=== PATIENT | female | born 1990 | race Caucasian/White ===

== ENCOUNTER 2021-09-27 10:47 | Outpatient (CLI) | payer MEDICAID, SELFPAY | END 2021-09-27 23:59 | disposition short-term general hospital (02) | LOC: LABSPEC 10:47 | PROVIDERS: Visit Provider Physician Assistant | DX: U07.1 COVID-19 (principal) | CPT/HCPCS: 87635; U0003; U0005 ==

== ENCOUNTER 2021-09-30 09:47 | Outpatient (CLI) | payer MEDICAID, SELFPAY ==
[2021-09-30 10:00] VITALS: BP 124/84; PULSE 77; RESP 16; TEMP 36.7; O2SAT 97; BMI 66.4
[2021-09-30] MEDS: 0.9% Saline Lock 10 ML Syringe IV (10:07)
[2021-09-30 10:29] VITALS: BP 118/73; PULSE 55; RESP 16; TEMP 36.4; O2SAT 96
[2021-09-30 11:22] VITALS: BP 116/66; PULSE 98; RESP 16; TEMP 36.3; O2SAT 98
== END 2021-09-30 23:59 | disposition home or self-care (01) ==
LOC: MS3OUT 09:50 → MS3 09:57
PROVIDERS: PCP Nurse Practitioner Adult Health; Referring Provider Nurse Practitioner Adult Health; Visit Provider Nurse Practitioner Adult Health
DX: U07.1 COVID-19 (principal)
CPT/HCPCS: J7050; M0243; A4216; Q0244

== ENCOUNTER 2021-10-23 20:31 | Outpatient (CLI) | payer MEDICAID, SELFPAY | END 2021-10-23 23:59 | disposition short-term general hospital (02) | PROVIDERS: PCP Family Medicine; Referring Provider Internal Medicine Sleep Medicine; Visit Provider Internal Medicine Sleep Medicine | DX: O99.891 Other specified diseases and conditions complicating pregnancy (principal); E66.01 Morbid (severe) obesity due to excess calories; O99.353 Diseases of the nervous system complicating pregnancy, third trimester; G47.10 Hypersomnia, unspecified; R06.83 Snoring; O99.213 Obesity complicating pregnancy, third trimester; R06.81 Apnea, not elsewhere classified | CPT/HCPCS: 95811 ==

== ENCOUNTER 2021-11-01 09:10 | Inpatient (IN) | payer MEDICAID, SELFPAY ==
[2021-11-01] VITALS (13 sets, daily range): BP systolic 114–146; BP diastolic 61–88; PULSE 83–103; RESP 16–20; TEMP 36.1–36.7; O2SAT 95–100; BMI 66.7
--- NOTE | 2021-11-01 | FALS_PTH ---
PATIENT: FIDEL STANTON LOC: WP U#:[id number] AGE/SX: 31/F ROOM: WP004 RE11/01/[address]: Dr. Camelia Bauman MD : 1990 BED: 1 DIS: 11/02/2021 SPEC #: [id number] RECD: 11/01/21 14:33 STATUS: CONSUELO REMarcy #: [id number] JJ: 11/01/21 00:[address]: Camelia Bauman DEPT: SURGICAL PATHOLOGY RECD BY: Héctor Chaves ENTERED: 11/02/21 11:03 SP TYPE: FALL TUBES OTHR DR: Joshua Grove MD Tissues: Fallopian tube Procedures: Surgery Specimen Level II HEADER OPERATION: Tubal ligation PRE-OP DIAGNOSIS: Sterilization TISSUE SUBMITTED: Fallopian tubes MICROSCOPIC DIAGNOSIS Bilateral fallopian tubes, salpingectomy: Bilateral fallopian tubes, no pathologic diagnosis. CHANELLE:chelle 11/03/2021 MICROSCOPIC DESCRIPTION Slides are reviewed. GROSS DESCRIPTION Received in fixative is one container labeled with the patient's name and designated bilateral fallopian tubes. The specimen consists of bilateral fallopian tubes including fimbrial ends. One of the fallopian tubes show a suture. The fallopian tube with suture measures 7 cm in length and 0.5 cm in diameter. The other fallopian tube measures 7 cm in length and 0.5 cm in diameter. The fallopian tubes are not identified as right or left. Sections reveal unremarkable cut surfaces. Pastrycook'S Assistant sections are submitted in two cassettes as follows: 1 ? fallopian tube with suture, 2 ? second fallopian tube without suture. / CHANELLE:chelle 11/02/2021 TC:4 CPT: 93241 x2
[2021-11-01] MEDS: Lactated Ringers 1,000 ML 999 ML IV (09:50)
[2021-11-01 10:02] LABS: Absolute Lymphocyte Count 1.45 X10^3/uL (0.83-4.51); Absolute Neutrophil Count 7.9 X10^3/uL (2.0-7.7); Basophil# 0.02 X10^3/uL; Basophil% 0.2 % (0-1); Eosinophil# 0.07 X10^3/uL; Eosinophils% 0.7 % (0-5); Hematocrit 41.2 % (37-47); Hemoglobin 13.7 g/dL (12.0-15.0); Lymphocyte # 1.45 X10^3/ul (0.83-4.51); Lymphocyte % 14.4 % (19-41); Mean Corp Hgb Conc 33.3 g/dL (32-36); Mean Corpuscular Hgb 27.9 pg (27.0-32.0); Mean Corpuscular Volume 83.9 fL (81-99); Mean Platelet Vol. 9.4 fl (6.2-12.0); Monocyte# 0.53 X10^3/uL; Monocyte% 5.3 % (0-10); NRBC Flagged by Analyzer 0 % (0-5); Neutrophil # 7.93 X10^3/uL (2.7-7.7); Platelet Count 268 K/mm3 (150-450); RBC Distribution Width SD 48.3 fl (35.1-43.9); Red Blood Count 4.91 M/mm3 (4.2-5.4)
[2021-11-01] MEDS: Acetaminophen 500 MG Tablet 1000 MG PO ×3 (10:34→23:22)
[2021-11-01] MEDS: Lactated Ringers 1,000 ML 150 ML IV (10:50)
[2021-11-01 11:05] LABS: Bedside Glucose 70 mg/dL (70-110)
[2021-11-01] MEDS: Sodium Citrate/Citric Acid 30 ML UDC PO (11:55)
--- NOTE | 2021-11-01 13:11 | PCM.HP.OB ---
HPI - General General Date of Admission: 11/01/21 Chief Complaint: 37 weeks HPI Narrative FIDEL STANTON, is a 31-year-old 3 para 1-0-1-1 who presents with EDC of 11/22/1910/12[birth year]2021 by first trimester ultrasound presents for repeat section. She denies any vaginal bleeding or leaking of fluid. is uncomplicated to date by gestational diabetes, she was not on insulin but her blood sugars have trended up. She not start regularly checking her sugars until late in the third trimester that is why she is not started on insulin. In addition she has severe sleep apnea and had not gotten evaluated or gotten the CPAP prior to and then had some delays getting it during the . With her morbid obesity, sleep apnea and sats dropping into the 60s at times when she sleeps, and gestational diabetes with worsening blood sugars decision was made to proceed with section at 37 weeks. Maternal Data Information Final BIJU: 11/21/21 Final BIJU Source: US <20 weeks Gestational age: 37 PFSH [facility] Medical History (Updated 11/01/21 @ 13:[address] Camelia Bauman MD) ADHD Anxiety Arthritis Asthma COVID Depression Family history of hearing loss at age younger than 7 years Gestational diabetes History of asthma Hx of sleep apnea Migraines Obese Status post placement of bone anchored hearing aid (BAHA) Home Medications [id number] [] 1 tab PO DAILY 10/31/21 [History Last Taken 10/31/21 19:00] acetaminophen 500 mg PO Q6H PRN 10/31/21 [History Last Taken 10/31/21 19:00] albuterol sulfate 2 puff INHALATION Q6H PRN 10/31/21 [History Last Taken Unknown] ascorbic acid (vitamin C) [Vitamin C] 500 mg PO DAILY 10/31/21 [History Last Taken 10/31/21 19:00] cetirizine [Zyrtec] 10 mg PO DAILY 10/31/21 [History Last Taken 10/31/21 19:00] cholecalciferol (vitamin D3) [Vitamin D3] 25 mcg PO DAILY 10/31/21 [History Last Taken 10/31/21 19:00] aspirin [Baby Aspirin] 81 mg PO DAILY 11/01/21 [History Last Taken 10/31/21 19:00] Allergy/AdvReac Type Severity Reaction Status Date / Time codeine AdvReac HYPERACTIVE Verified 11/01/21 09:39 metoclopramide HCl AdvReac HYPERACTIVE Verified 11/01/21 09:39 [From Reglan] Surgical History (Updated 11/01/21 @ 13:[address] Camelia Bauman MD) History of myringotomy Hx laparoscopic cholecystectomy Hx of cholecystectomy Previous section Social History Smoking Status: Never smoker History Elective abortions Hx Para 1 Spontaneous abortions Hx # Term Pregnancies Ectopic pregnancies Hx # Pregnancies Multiple births # of living children ROS Constitutional Constitutional: Denies fatigue, fever(s) or malaise Eyes Eyes: Denies change in vision ENT HEENT: Denies dizziness or headache(s) Cardiovascular Cardiovascular: Denies chest pain, dyspnea or lightheadedness Respiratory/Chest Respiratory/Chest: Denies cough or dyspnea Gastrointestinal Gastrointestinal: Denies change in bowel habits Genitourinary Genitourinary: Denies burning urination or genital lesions Integumentary Integumentary: Denies rash Neurologic Neurologic: Denies confusion, dizziness, headache(s), numbness or weakness Vital Signs Vital Signs Vital Signs: 11/01/21 11:00 Temperature 97.2 F L Temperature Source Temporal Pulse Rate 98 Respiratory Rate 16 Blood Pressure 135/73 H Blood Pressure Mean 93 Blood Pressure Source Monitor Blood Pressure Position Semi-Fowlers Blood Pressure Location Right Arm Pulse Ox 98 Oxygen Delivery Method Room Air Weight Weight: 140 kg Body Mass Index (BMI) 66.7 Physical Exam Const alert and no apparent distress General Appearance: cooperative HEENT normocephalic Resp normal respiratory effort Cardio regular rate GI soft to palpation GI Narrative: gravid, nontender, appropriate for gestational age Extremity no calf tenderness General Extremity: edema Skin no wounds Rashes: No rashes noted Psych activity/motor behavior normal Labs Labs Labs: Blood Type AB POSITIVE Antibody Screen NEGATIVE Hct 41.2 % (37-47) Hgb 13.7 g/dL (12.0-15.0) Obstetrics US Rhogam given: No Assessment & Plan (1) 37 weeks gestation of : (2) Previous delivery affecting , antepartum: PLAN: Risk benefits alternatives of previous section with bilateral salpingectomy were discussed with patient, questions were answered to her satisfaction she desires to proceed. She understands that sterilization is permanent irreversible. (3) Maternal obesity syndrome in third trimester: (4) Body mass index (BMI) of 60.0 to 69.9 in adult: (5) Gestational diabetes, diet controlled: (6) COVID-19 affecting in third trimester: (7) Sterilization:
--- NOTE | 2021-11-01 13:20 | OP.PCM_ITS ---
Assessment & Plan (1) Gestational diabetes, diet controlled: (2) Body mass index (BMI) of 60.0 to 69.9 in adult: (3) Maternal obesity syndrome in third trimester: (4) Previous delivery affecting , antepartum: (5) 37 weeks gestation of : Maternal Data Information Final BIJU: 11/21/21 Gestational age: 37 1/7 Details Operative Information Date of Procedure: 11/01/21 Pre-Operative Diagnosis: 37 weeks, previous c/s, GDMa1, sleep apnea Post-Operative Diagnosis: same Indications for : Repeat Elective Classification: Scheduled Procedure Type: bilateral salpingectomy sanitation engineer #1: Daniel Carr Type of Anesthesia: Spinal Anesthesiologist: Sage Zimmerman Antibiotic Given: Ancef 3 grams IV x1 Drain: Frost to straight drain Estimated Blood Loss: 800 Fluids Replaced: 1200 Procedure Start Time: 12:34 Procedure Stop Time: 13:18 Time of Delivery: 12:38 Findings Description of Procedure: The patient was taken to the operating room. She was prepped and draped in the dorsal supine position with a leftward tilt. Strauss straps were used to retract the pannus. A Pfannenstiel skin incision was made approximately 2 cm above the symphysis pubis and carried through to underlying layer fascia with the scalpel. The fascia was incised incised in the midline and extended laterally with the De La Garza scissors. The fascia was dissected off the rectus muscles with blunt and sharp dissection. The rectus muscles were in the midline and the peritoneum was entered bluntly. The peritoneal incision was stretched and the Francis O retractor was placed in the usual sterile fashion. Care was taken to ensure that no abdominal contents were trapped underneath it. The uterine incision was made in a low transverse fashion with the scalpel and extended superiorly and inferiorly with blunt dissection. The amniotic membranes were ruptured bluntly and clear amniotic fluid returned. The 's head was brought to the incision in the flexed position and delivered without difficulty. The remainder of the infant was delivered with gentle traction and the loose nuchal cord x2 was easily reduced and fundal pressure in the standard fashion. The mouth and nares were bulb suctioned. The cord was clamped and cut as the was stimulated. Cord clamping was delayed. The was handed off to the waiting nursing staff. The placenta was delivered with fundal massage and gentle traction in the standard fashion. The uterus was left in situ. The cervix was dilated with a ring forcep. The uterine incision was closed with #1 Vicryl in a running locked fashion. A single [id number] suture was needed in a sinus near the midline and hemostasis was noted. The incision was examined and was found to be hemostatic. The left tube was identified and followed out to the fimbriated end. Antimesenteric portion was then clamped, sealed and transected with the LigaSure to void device. The insertion into the cornea was then clamped sealed and transected with the LigaSure device. The same procedure was performed on the contralateral side and both tubes were sent sent to pathology. The uterine incision was reexamined and found to be hemostatic. The rectus muscles were examined and any bleeding was Bovie cauterized. The parietal peritoneum and rectus muscles were closed en bloc with an 0 Vicryl running suture. The surgical teams outer gloves were then changed. The rectus fascia was examined and any bleeding was Bovie cauterized and the rectus fascia was closed with loop PDS suture in a running standard fashion. Issa was placed over every layer during closure. The subcutaneous tissue was examining and any bleeding was Bovie cauterized. The subcutaneous tissue was reapproximated with 3-0 Vicryl suture in 2 layers. The skin was closed in a subcuticular fashion by the TANNER ROTARY DRUM CONTINUOUS PROCESS with me present in the labor and delivery suite. I performed the remainder of the procedure with assistance. All sponge, lap, and needle counts were correct. The patient was taken to her room for recovery in a stable condition. Of note the baby was transported [facility] for yousuf luation. Baby was requiring supplemental oxygen and was noted to have a cleft palate. Presentation: Positive for Vertex Amniotic Membrane Rupture Type: Artificial Amniotic Fluid Description: Clear Placental Delivery Description: Expressed Placenta Disposition: Sent with transport team Specimen(s) Sent to Pathology: Bilateral fallopian tube Cord Vessel Description: 3 Vessels Cord Entanglement: Around neck x 2, loose Nuchal Cord Compression: Without compression Cord Gases: ABG and VBG A Gender: Male (Issac, of no Apgars were not available at time of note.) Delayed Cord Clamping: Yes Complications Complications: No complications.
[2021-11-01] MEDS: Oxytocin 30 units/NS 500 ml 30 UNITS/500 ML IV.SOLN 167 UNITS IV (13:30)
[2021-11-01] MEDS: Ketorolac 30 MG/ML Syringe IV ×2 (14:50→20:31)
[2021-11-01] MEDS: 0.9% Saline Lock 10 ML Syringe IV ×2 (14:50→20:32)
[2021-11-01 15:05] LABS: Bedside Glucose 91 mg/dL (70-110)
--- NOTE | 2021-11-01 15:11 | CASEMGMT ---
Social Work Labor and Delivery Consulted by freight adjuster for support to the father of baby who remained present for the baby, who was being cared for by medical team. Mother of baby back in room and on recovery. Met with father of baby, introduced to self and role. Offered emotional support. FOB reports to have a sister with 20 plus years as a NICU nurse, so has this trustworthy resource to help FOB understand what is going on. Supportive listening offered. FOB plans to go to [place] to be with baby, will have a family member drive FOB to [place] and have already arranged a second support to MOB while MOB is recovering in the hospital after delivery. -VALERIO Nguyễn, FORM STRIPPER
--- NOTE | 2021-11-01 15:13 | NURSING ---
2nd bottle of kimberly- Lot: [id number] Exp: 05/20/26
--- NOTE | 2021-11-01 19:35 | NURSING ---
Addendum entered by Florence Ellis 11/01/21 19:35: This RN has reviewed and agrees with all charting by SN Aniceto Original Note: this RN has reviewed and agrees with all charting by Hue Parker RN
[2021-11-01] MEDS: oxyCODONE 5 MG Tablet PO (19:43)
[2021-11-02 00:40] VITALS: BP 144/87; PULSE 96; RESP 16; TEMP 35.9; O2SAT 97
[2021-11-02] MEDS: Enoxaparin 40 MG/0.4 ML Syringe SC ×2 (00:46→13:39)
[2021-11-02] MEDS: 0.9% Saline Lock 10 ML Syringe IV ×2 (02:42→09:20)
[2021-11-02] MEDS: Ketorolac 30 MG/ML Syringe IV ×2 (02:42→09:18)
[2021-11-02 04:50] VITALS: BP 120/72; PULSE 86; RESP 16; TEMP 36; O2SAT 96
[2021-11-02] MEDS: Acetaminophen 500 MG Tablet 1000 MG PO ×3 (05:05→17:47)
[2021-11-02 05:48] LABS: Hematocrit 45.5 % (37-47); Hemoglobin 13.8 g/dL (12.0-15.0); Mean Corp Hgb Conc 30.3 g/dL (32-36); Mean Corpuscular Hgb 28.8 pg (27.0-32.0); Mean Platelet Vol. 9.2 fl (6.2-12.0); Platelet Count 189 K/mm3 (150-450); RBC Distribution Width SD 56.1 fl (35.1-43.9); Red Blood Count 4.79 M/mm3 (4.2-5.4); White Blood Count 9.6 K/mm3 (4.4-11.0)
[2021-11-02 06:20] LABS: Bedside Glucose 97 mg/dL (70-110)
--- NOTE | 2021-11-02 08:21 | PCM.PN.OB ---
Subjective Subjective Patient seen at bedside. Requesting discharge home due to baby being in [facility]. Denies any headache, vision changes, SOB or CP. Ambulating and voiding without difficulty. Lochia decreasing. Pumping and saving breast milk to transfer to . Objective Data Objective Data Vital Signs: Vital Signs Temp Pulse Resp BP Pulse Ox 96.8 F L 86 16 120/72 96 11/02/21 04:50 11/02/21 04:50 11/02/21 04:50 11/02/21 04:50 11/02/21 04:50 Oxygen Delivery Method Room Air Weight: 308 lb 10.354 oz Body Mass Index (BMI) 66.7 Intake & Output: Intake and Output for Last 24 Hours 10/31/21 11/01/21 11/02/21 23:59 23:59 23:59 Intake Total 1782.5 / 1782.5 Output Total 550 / 550 900 / 900 Balance 1232.5 / 1232.5 -900 / -900 Lab / Micro Data Result Diagrams: 11/02/21 05:30 Labs: Laboratory Results - last 24 hr 11/01/21 09:50: WBC 10.0, RBC 4.91, Hgb 13.7, Hct 41.2, MCV 83.9, MCH 27.9, MCHC 33.3, RDW Std Deviation 48.3 H, RDW Coeff of Edward 16.0 H, Plt Count 268, MPV 9.4, Immature Gran % (Auto) 0.400, Neut % (Auto) 79.0 H, Lymph % (Auto) 14.4 L, [place] % (Auto) 5.3, Eos % (Auto) 0.7, Baso % (Auto) 0.2, Absolute Neuts (auto) 7.9 H, Absolute Lymphs (auto) 1.45, Nucleated RBC % 0 11/01/21 09:50: Blood Type AB POSITIVE, Antibody Screen NEGATIVE 11/01/21 10:53: POC Glucose 70 11/01/21 14:55: POC Glucose 91 11/02/21 05:30: WBC 9.6, RBC 4.79, Hgb 13.8, Hct 45.5, MCV 95.0 D, MCH 28.8, MCHC 30.3 L D, RDW Std Deviation 56.1 H, RDW Coeff of Edward 16.0 H, Plt Count 189, MPV 9.2 11/02/21 06:15: POC Glucose 97 ROS Eyes Eyes: Denies blurry vision, change in vision or spots in vision ENT HEENT: Denies dizziness or headache(s) Cardiovascular Cardiovascular: Denies abdominal pain, chest pain or dyspnea Respiratory/Chest Respiratory/Chest: Denies cough, dyspnea, shortness of breath at rest or shortness of breath with exertion Gastrointestinal Gastrointestinal: Denies abdominal pain, diarrhea or vomiting Genitourinary Genitourinary: Denies change in urinary stream, difficulty urinating or dysuria Musculoskeletal Musculoskeletal: Reports none Integumentary Integumentary: Denies rash Neurologic Neurologic: Denies dizziness, headache(s), memory loss or weakness Physical Exam Narrative Mepilex silver dressing with drainage not outside of marked area. Const alert and no apparent distress General Appearance: cooperative and comfortable Exam Limitations: no limitations HEENT normocephalic Eyes General Eye: normal appearance of both eyes Neck full ROM General: normal visual inspection Chest Chest: symmetrical chest wall rise Resp normal respiratory effort and normal air movement Effort and Inspection: symmetric chest movement Auscultation: clear to auscultation bilaterally Cardio regular rate and regular rhythm GI normal to inspection, nondistended, normoactive bowel sounds Back/Spine normal ROM Extremity full ROM and no calf tenderness General Extremity: normal exam except as noted Skin no rashes or lesions noted Neuro CN's II-XII intact bilaterally Psych mental status grossly normal Assessment & Plan (1) Sterilization: (2) Body mass index (BMI) of 60.0 to 69.9 in adult: (3) Status post repeat low transverse section: PLAN: PO 1 Repeat C/S Pain control Routine care / pumping support D/C home due to being in [facility] (respiratory) Patient to follow up in office 1 week for incision check Dr. Bauman notified of discharge
[2021-11-02 09:00] VITALS: BP 120/74; PULSE 94; RESP 24; TEMP 36.1; O2SAT 96
[2021-11-02] MEDS: Senna/Docusate Sodium 1 Tablet PO (09:19)
--- NOTE | 2021-11-02 11:52 | PCM.DC.SUM ---
Providers Date of Admission: 11/01/21 Primary Care Physician: Joshua Grove MD Reason For Visit: REPEAT C SECTION - NEEDS PAT/ANES CONSULT PER OFFI Medications at Discharge Home Medications 1 tab PO DAILY 10/31/21 Zyrtec 10 mg PO DAILY 10/31/21 albuterol sulfate 2 puff INHALATION Q6H PRN 10/31/21 oxycodone 5 - 10 mg PO Q4H PRN PRN 5 Days #20 tab 11/02/21 Hospital Course Operations section Physical Exam Const alert and no apparent distress General Appearance: cooperative and comfortable Exam Limitations: no limitations HEENT normocephalic Eyes General Eye: normal appearance of both eyes Neck full ROM General: normal visual inspection Chest Chest: symmetrical chest wall rise Resp normal respiratory effort and normal air movement Effort and Inspection: symmetric chest movement Auscultation: clear to auscultation bilaterally Cardio regular rate and regular rhythm GI normal to inspection, nondistended, normoactive bowel sounds Back/Spine normal ROM Extremity full ROM and no calf tenderness General Extremity: normal exam except as noted Skin no rashes or lesions noted Neuro CN's II-XII intact bilaterally Psych mental status grossly normal Weight / BMI Weight Weight: 308 lb 10.354 oz Body Mass Index (BMI) 66.7 ABG / Lab / Microbiology Data Result Diagrams: 11/02/21 05:30 Laboratory: Laboratory Results - last 24 hr 11/01/21 14:55: POC Glucose 91 11/02/21 05:30: WBC 9.6, RBC 4.79, Hgb 13.8, Hct 45.5, MCV 95.0 D, MCH 28.8, MCHC 30.3 L D, RDW Std Deviation 56.1 H, RDW Coeff of Edward 16.0 H, Plt Count 189, MPV 9.2 11/02/21 06:15: POC Glucose 97 D/C Instructions Discharge Diet: No restrictions May resume sexual activity in: 6-8 weeks Weight Bearing Status: Weight bearing as tolerated Lifting Restrictions: 20 lbs Call your doctor if your incision/area has: Continuous Slow Oozing, Increased Pain/ Swelling, Increased Redness, Foul Smelling Discharge and Swelling at the incision site Call your doctor if you observe: Fever of 101 or Higher, Inability to urinate, Using more than 1 pad per hour, Shortness of breath, Chest pain, Calf discomfort and Uncontrolled pain Remove Dressing in: 5 days Cleanse incision/area with: Soap & Water and Keep Dressing Clean & Dry When: 1 week in office for incision check or sooner if needed 6 weeks Meaningful Use Info Meaningful Use Diagnoses (Choose all that apply): None applicable Discharge Plan Admission Admit Date/Time: 11/01/21 09:10 Primary Reason for Your Visit: Repeat C/S with BTL Attending Provider: Camelia Bauman Primary Care Provider: Joshua Grove Discharge Orders/Prescriptions Prescriptions: New oxycodone 5 mg Tablet 5 - 10 mg PO Q4H PRN PRN (Reason: Pain Score 4-10) 5 Days Qty: 20 RF: 0 Continued Zyrtec 10 mg Capsule 10 mg PO DAILY RF: 0 28-800 mg-mcg Tablet 1 tab PO DAILY RF: 0 albuterol sulfate 90 mcg/actuation Hfa Aerosol Inhaler 2 puff INHALATION Q6H PRN (Reason: ASTHMA) RF: 0 Discontinued acetaminophen 500 mg Tablet 500 mg PO Q6H PRN (Reason: Pain) RF: 0 ascorbic acid (vitamin C) [Vitamin C] 500 mg Tablet 500 mg PO DAILY RF: 0 cholecalciferol (vitamin D3) [Vitamin D3] 25 mcg (1,000 unit) Tablet,Chewable 25 mcg PO DAILY RF: 0 aspirin [Baby Aspirin] 81 mg Tablet,Chewable 81 mg PO DAILY RF: 0 Referrals / Follow Up: Joshua Grove MD [Primary Care Provider] - Disposition Disposition (needs filled in before D/C Order can be placed): Home, Self Care
[2021-11-02 13:00] VITALS: BP 131/84; PULSE 92; TEMP 36; O2SAT 95
--- NOTE | 2021-11-02 13:31 | CASEMGMT ---
Social Work Brief Assessment Labor and Delivery Unit Patient Address: [address], [place] [address] Phone number: [phone] Date of Referral/Notification: 11/01/2021 Time of Referral: 1736 Referred By: Dr. Camelia Bauman Date of Intervention: 11/02/2021 Time of Intervention: [id number] Reason for Referral: Infant transferred to [facility], infant born with undiagnosed cleft palate Informant: Medical record and mother of baby (MOB) Christa Levin History: PARISH is a 31-year-old female, 3, para 1 now 2 after delivering baby boy Issac Levin on 11/01/2021. Emma's was delivered and found to have an undiagnosed cleft palate also some respiratory distress issues which prompted transfer to [facility]. MOB is to the father of baby (FOB) Norman Levin. During conversation with MOB, MOB denies any form of abuse, control, intimidation in this relationship. MOB and FOB now have 2 children together: Juliana Levin born 10/15/2014, and baby boy Issac Levin. Record indicates the father of baby has a history of bipolar disorder, depression and anxiety. MOB a history of ADHD, anxiety and depression. MOB denies any concerns with her emotional health, and denies any history of depression or anxiety. No reports or endorsement of any type of substance use. 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 No reported issues with learning or comprehension for the MOB. MOB denies any concerns or history with children services. No reports of any legal issues. Assessment: Met with MOB in room, introducing to self and social work role. MOB reports to be doing pretty well physically, has been up and moving, and is just a little sore. Reports to be doing well emotionally and has been getting updates about the baby, and hoping to be discharged today to go to [place] to see the baby. MOB denies any history of depression or anxiety, even after her old older daughter spent a week in the NICU at [place]. MOB reports awareness about what depression is, due to other family experiencing this. MOB denies any concerns for her own emotional health, and knows where to go if support is needed. Denies any concerns about the FOB'S emotional health, and reports the FOB is on medication. MOB reports that she and the FOB have been communication with employer and the employer has a special fund to help people with chronic illness or long-term hospitalization, and the employer has approved the family for this extra assistance. MOB reports because of this there is no type of financial concerns while the baby has to be hospitalized or undergoing surgery. MOB denies any concerns with housing, transportation, or supplies. Reports to have safe sleep space for the baby. Planning to breast-feed. Reports to have adequate support from various family members and already has childcare arranged for [place] while the parents are up at [facility]. MOB has a medical card and WIC already. Educated MOB that social work will be available at [facility] and likely be touching base with the family going over additional resources that may be of assistance. Provided MOB with information on mood and anxiety disorders, local resources, and a [facility] social service resource list. MOB denies any concerns with discharge. Plan: MOB will discharge home, with plans for a sister to have transport of the [place]. MOB has been given community resource information and resource information on mood and anxiety disorders. MOB is aware that social work is available at [facility] should needs or concerns arise. No further needs requested or indicated. -VALERIO Nguyễn, HAT BINDER *This note was generated with [employer] software. It may contain incorrect words, spelling, and punctuation that were not noted in review of the chart prior to signing*
[2021-11-02] MEDS: Naproxen 500 MG Tablet PO (14:41)
--- NOTE | 2021-11-02 16:47 | NURSING ---
[id number] otto called since pt had another [id number] and [id number]-350cc. Pt complaining of improving DANGELO pain but now complaining of neck pain. Pt denies DANGELO improvement with lying down but states that she has a hx of migraines. KHURRAM Goldstein is on another call but nurse called back to tell this RN to have pt stay overnight again for observation and if pt refuses to stay she will need to leave against medical advice. Pt was not happy but RN encouraged pt that she needs to care for herself and be stable before she can drive to [facility] to see her baby. Pt agreeable to stay at this time. PT given sprite and an icee at this time since unable to eat lunch tray. Will continue to observe.
[2021-11-02 16:57] VITALS: BP 140/87; PULSE 98; RESP 24; TEMP 35.9; O2SAT 95
--- NOTE | 2021-11-02 18:15 | PN_ITS ---
Progress Note Patient seen at bedside due to having headache and two large emesis during the day. She is still requesting to be discharged home so she can go to [facility] with . She reports headache is only due to neck pain. When she has neck pain it makes her head hurt. She has has history of migraines and gets headaches All the time. She ate eggs for breakfast and that is why she vomited. She stated she always throws up after eating eggs. Patient denies any current headache, vision changes, SOB, CP, or RUQ pain. Ambulating without difficulty. Physical Exam Const alert and no apparent distress General Appearance: cooperative and comfortable Exam Limitations: no limitations HEENT normocephalic Eyes General Eye: normal appearance of both eyes Neck full ROM General: normal visual inspection Chest Chest: symmetrical chest wall rise Resp normal respiratory effort and normal air movement Effort and Inspection: symmetric chest movement Auscultation: clear to auscultation bilaterally Cardio regular rate and regular rhythm GI normal to inspection, nondistended, normoactive bowel sounds Back/Spine normal ROM Extremity full ROM and no calf tenderness General Extremity: normal exam except as noted Skin no rashes or lesions noted Neuro CN's II-XII intact bilaterally Psych mental status grossly normal Assessment & Plan Assessment/Plan (1) Status post repeat low transverse section: (2) Sterilization: (3) Migraine: QUALIFIERS: Migraine type: without aura Status migrainosus presence: without status migrainosus Intractability: not intractable Qualified Code(s): G43.009 - Migraine without aura, not intractable, without status migrainosus (4) Body mass index (BMI) of 60.0 to 69.9 in adult: PLAN: PO 1 Repeat C/S Pain controlled with Tylenol and Motrin PO Preeclampsia precautions reviewed Continue with discharge Patient to follow up in office Saturday for incision and BP check
[2021-11-02 18:32] VITALS: BP 127/85; PULSE 100; RESP 16; TEMP 36.3; O2SAT 98
[2021-11-02] MEDS: oxyCODONE 5 MG Tablet PO (18:53)
[2021-11-03 15:21] LABS: Pathology Specimen OB SEE PATHOLOGY REPORT
== END 2021-11-02 19:00 | disposition home or self-care (01) | DRG 539 ==
PROVIDERS: Admitting Provider Obstetrics & Gynecology; PCP Family Medicine; Visit Provider Obstetrics & Gynecology
PROC: 10D00Z1 Extraction of Products of Conception, Low, Open Approach (ICD-10-PCS; CPT 59514; principal; 2021-11-01 11:45)
DX: O34.211 Maternal care for low transverse scar from previous cesarean delivery (principal); O99.354 Diseases of the nervous system complicating childbirth; E66.01 Morbid (severe) obesity due to excess calories; J45.909 Unspecified asthma, uncomplicated; G43.009 Migraine without aura, not intractable, without status migrainosus; G47.30 Sleep apnea, unspecified; Z37.0 Single live birth; O69.81X0 Labor and delivery complicated by cord around neck, without compression, not applicable or unspecified; Z3A.37 37 weeks gestation of pregnancy; O24.420 Gestational diabetes mellitus in childbirth, diet controlled; Z79.82 Long term (current) use of aspirin; O99.344 Other mental disorders complicating childbirth; F90.9 Attention-deficit hyperactivity disorder, unspecified type; Z86.16 Personal history of COVID-19; O99.52 Diseases of the respiratory system complicating childbirth; O99.214 Obesity complicating childbirth; Z30.2 Encounter for sterilization
CPT/HCPCS: 59050; 82962; 85025; 85027; 86850; 86900; 86901; 88302; 99218; 99251; J7120; A4216; G0378; G0463; J2405